=== PATIENT | female | born 1990 | race Hispanic/Latino ===

== ENCOUNTER 2020-02-24 01:07 | Emergency (ER) | payer OTHER ==
[~2020-02-24] VITALS: Ht 162.6 cm; Wt 70.4 kg
[~2020-02-24 01:07] MED LIST: BIRTH CONTROL PILL; CIPRO500 MG OR; FERROUS SULF325 M1 PO; LORTAB 5 OR; MONISTAT1 VA; NO CURRENT MEDS; NO HOME MEDS; OBTREX DHA PO; PERCOCET 5/325M1 TAB OR; PHENERGAN SUPP RE; PRE-NATAL OR; PRILOSEC20 MG/CAP PO; PYRIDIUM200 MG OR; ULTRAM50 MG OR; VENTOLIN HFA IN; ZYRTEC10 MG OR
[2020-02-24 01:50] LABS: HEMATOCRIT 33.6 % (37.0-47.0); HEMOGLOBIN 10.7 g/dl (12.0-16.0); IMMATURE GRANULOCYTES 0.2 % (0.0-5.0); MEAN CORPUSCULAR HGB 26.6 pG CALC (26.0-32.0); MEAN CORPUSCULAR HGB CONC 31.8 g/dL CAL (32.0-36.0); NEUT# 6.25 thou/uL (2.00-7.15); RED BLOOD COUNT 4.03 mill/uL (4.20-5.60); RED CELL DISTRI WIDTH 14.8 % (11.5-15.5)
[2020-02-24 01:51] LABS: URINE BILIRUBIN - DIPSTICK NEGATIVE (NEGATIVE); URINE BLOOD DIPSTICK TRACE-LYSED (NEGATIVE); URINE COLOR YELLOW; URINE GLUCOSE - DIPSTICK NEGATIVE (NEGATIVE); URINE KETONE NEGATIVE (NEGATIVE); URINE LEUK ESTERASE TRACE (NEGATIVE); URINE NITRITE - DIPSTICK NEGATIVE (Negative); URINE PROTEIN - DIPSTICK NEGATIVE (NEG-TRACE); URINE SPECIFIC GRAVITY <=1.005; URINE UROBILINOGEN - DIPSTICK 0.2 E.U./dL (0.2)
[2020-02-24 01:51] LABS: MEAN CELL VOLUME 83.4 fL CALC (80.0-100.0)
[2020-02-24 02:01] LABS: ALBUMIN 3.9 g/dL (3.2-5.0); ALKALINE PHOSPHATASE 73 u/l (38-126); AMYLASE 56 u/l (30-110); ANION GAP 6 (6-22 (CALC)); BILIRUBIN, TOTAL 0.5 mg/dL (0.0-1.4); BUN 11 mg/dL (7-17); BUN/CREATININE RATIO 15 (12-20 (CALC)); CARBON DIOXIDE 28 mmol/l (22-30); CHLORIDE 106 mmol/l (95-108); CREATININE 0.7 mg/dL (0.5-1.0); GFR > 60 ML/MIN (>=60 (CALC)); GFR FOR AFR.AMER. > 60 ML/MIN (>=60 (CALC)); LIPASE 83 u/l (23-300); POTASSIUM 3.7 mmol/l (3.5-5.1); SGOT/AST 21 u/l (14-36); SODIUM 136 mmol/l (137-146); TOTAL PROTEIN 6.9 g/dL (6.3-8.2)
[2020-02-24 02:37] VITALS: BP 103/55
[2020-02-24] MEDS ORDERED: MIRALAX3350 N1 PO (02:45)
[2020-02-24] MEDS ORDERED: MAGNESIUM296 ML/BTL PO (02:45)
== END 2020-02-24 03:02 | disposition home or self-care (01) ==
LOC: ED 01:07
PROVIDERS: Family Medicine
DX: K59.00 Constipation, unspecified (principal)

== ENCOUNTER 2022-12-20 17:59 | Emergency (ER) | payer BC, MEDICAID ==
[~2022-12-20] VITALS: Ht 160 cm; Wt 72.0 kg
[~2022-12-20 17:59] MED LIST changes: +MAGNESIUM296 ML/BTL PO; +MIRALAX3350 N1 PO
[2022-12-20 18:55] LABS: BASO% 0.5 % (0-3); EOS% 1.7 % (0-8); HEMATOCRIT 34.9 % (37.0-47.0); HEMOGLOBIN 11.6 g/dl (12.0-16.0); IMMATURE GRANULOCYTES 0.1 % (0.0-5.0); LYMPH% 22.4 % (15-41); MEAN CORPUSCULAR HGB 29.4 pG CALC (26.0-32.0); MEAN CORPUSCULAR HGB CONC 33.2 g/dL CAL (32.0-36.0); MONO% 6.8 % (2-13); NEUT# 6.43 thou/uL (2.00-7.15); NEUT% 68.5 % (42-76); RED BLOOD COUNT 3.94 mill/uL (4.20-5.60); RED CELL DISTRI WIDTH 13.3 % (11.5-15.5)
[2022-12-20 18:56] LABS: MEAN CELL VOLUME 88.6 fL CALC (80.0-100.0)
[2022-12-20 21:15] VITALS: BP 106/57
== END 2022-12-20 21:40 | disposition home or self-care (01) | DRG 779 ==
LOC: ED 17:59
PROVIDERS: Family Medicine
DX: O03.9 Complete or unspecified spontaneous abortion without complication (principal)